=== PATIENT | female | born 1940 | race Caucasian/White ===

== ENCOUNTER 2019-11-17 05:49 | Emergency (ER) | payer OTHER ==
[~2019-11-17] VITALS: Ht 152.4 cm; Wt 79.4 kg
--- NOTE | 2019-11-17 05:55 | NUR ---
Dr. Castillo at bedside for MSE.
[2019-11-17] MEDS ORDERED: CLOP75TA33 PO (06:08)
[2019-11-17] MEDS ORDERED: CHOL200026 PO (06:08)
[2019-11-17] MEDS ORDERED: POTASSIUM 550 MG (06:08)
[2019-11-17] MEDS ORDERED: ATOR40TA29 PO (06:08)
[2019-11-17] MEDS ORDERED: DONE10TA44 PO (06:08)
[2019-11-17] MEDS ORDERED: levETIRAcetam IV 1,000 MG in IV DEXTROSE 5% 100 ML IV ONE (06:15)
[2019-11-17] MEDS ORDERED: levETIRAcetam 500 MG/5 ML VIAL IV ONE (06:20)
--- NOTE | 2019-11-17 06:20 | NUR ---
Pt out of ER for CT.
--- NOTE | 2019-11-17 06:32 | NUR ---
Pt back to ER from CT.
--- NOTE | 2019-11-17 07:11 | NUR ---
Report given to Justin Mckeon RN [facility].
[2019-11-17 07:14] LABS: BASOPHILS % (AUTO) 0.3 % (0.0-2.0); EOSINOPHILS % (AUTO) 0.3 % (0.0-7.0); HEMATOCRIT 41.9 % (31.2-41.9); HEMOGLOBIN 13.9 g/dL (10.9-14.3); LYMPHOCYTES # (AUTO) 0.8 K/uL (20.0-40.0); LYMPHOCYTES % (AUTO) 17.4 % (20.5-51.5); MEAN CORPUSCULAR HEMOGLOBIN 31.5 uug (24.7-32.8); MEAN CORPUSCULAR HGB CONC 33 g/dL (32.3-35.6); MEAN CORPUSCULAR VOLUME 94.8 fL (75.5-95.3); MONOCYTES # (AUTO) 0.9 K/uL (2.0-10.0); MONOCYTES % (AUTO) 18.6 % (0.0-11.0); NEUTROPHILS % (AUTO) 63.4 % (38.5-71.5); PLATELET COUNT (AUTO) 148 K/uL (179-408); RED BLOOD CELL COUNT(AUTO) 4.42 MIL/uL (3.63-4.92); WHITE BLOOD COUNT (AUTO) 4.7 K/uL (3.8-11.8)
[2019-11-17 07:27] LABS: ETHANOL < 3 MG/DL (0-0)
[2019-11-17 07:38] LABS: CARBON DIOXIDE 25 mmol/L (21-32); CHLORIDE 102 mmol/L (98-107); CREATININE 1.2 mg/dL (0.6-1.3); GLUCOSE 171 mg/dL (74-106); UREA NITROGEN, BLOOD 11 mg/dL (7-18)
[2019-11-17 07:44] LABS: ALANINE AMINOTRANSFERASE 18 U/L (14-59); ALKALINE PHOSPHATASE 48 U/L (50-136); ASPARTATE AMINOTRANSFERASE 27 U/L (15-37); BILIRUBIN,DIRECT 0.1 mg/dL (0.0-0.2); BILIRUBIN,TOTAL 0.7 mg/dL (0.2-1.0); TOTAL PROTEIN, SERUM 7.8 g/dL (6.4-8.2)
[2019-11-17] MEDS ORDERED: POTASSIUM CHLORIDE 10 MEQ TAB.PRT.SR ONE (07:59)
[2019-11-17] MEDS ORDERED: POTASSIUM CHLORIDE 10 MEQ TAB.PRT.SR PO ONE (08:00)
--- NOTE | 2019-11-17 08:20 | NUR ---
Pt got her legs tangled in side rail on bed, urinated on herself. Cleaned pt and changed her. Called pt's to pick her up. He indicated that he was stressed out about caring for her at home alone. Spoke with and will try to refer to DAVE for assistance. L/M for DAVE at 1441.
--- NOTE | 2019-11-17 09:05 | NUR ---
Pt had accidentally removed IV herself, catheter intact, site okay w/o bleeding. spoke with pt's , offered to transfer pt to [place], but wanted to take pt home. stated he has 2 SW at [place]. We urged to follow-up w/SWers and PCP to discuss options for pt care future. Gave pt's d/c instructions, verbalized understanding.
[2019-11-17 09:18] LABS: LYMPHOCYTES % (MANUAL) 20 % (20-40); MONOCYTES % (MANUAL) 17 % (2-10); NEUTROPHILS % (MANUAL) 63 % (42-75)
[2019-11-17 09:27] VITALS: BP 159/100
--- NOTE | 2019-11-17 10:24 | NUR ---
DAVE had received a voicemail message this morning from ED RN Justin regarding a social media assistant consultation for this patient. DAVE called ED at 9:13am this morning and spoke with Justin regarding the consultation. Justin stated that this SW can disregard the SS consultation request because patient's had just informed Justin and ED physician that patient has 2 social workers assigned to her from [place], and those social workers had provided patient's and the patient with several community resources which the stated they had not follow-up on yet. Justin stated that patient's had stated that he would like to take the patient home and will follow-up on the community resources that the [facility]'s had provided them with. No further SS consultation needed at this time.
== END 2019-11-17 09:10 | disposition home or self-care (01) ==
LOC: ER 05:49
DX: G40.909 Epilepsy, unspecified, not intractable, without status epilepticus (principal); Z91.14 Patient's other noncompliance with medication regimen; F03.90 Unspecified dementia, unspecified severity, without behavioral disturbance, psychotic disturbance, mood disturbance, and anxiety; Z86.73 Personal history of transient ischemic attack (TIA), and cerebral infarction without residual deficits; R94.31 Abnormal electrocardiogram [ECG] [EKG]; Z79.02 Long term (current) use of antithrombotics/antiplatelets; Z79.899 Other long term (current) drug therapy
CPT/HCPCS: 36415; 70450; 72125; 80048; 80076; 80307; 82962; 85025; 93005; 96374; 99285; J1953; J7060; 70030-TC; A4663; G0480

== ENCOUNTER 2020-01-10 23:50 | Emergency (ER) | payer OTHER ==
[~2020-01-10] VITALS: Ht 170.2 cm; Wt 69.4 kg
[~2020-01-10 23:50] MED LIST: ATOR40TA29 PO; CHOL200026 PO; CLOP75TA33 PO; DONE10TA44 PO; POTASSIUM 550 MG
[2020-01-11] MEDS ORDERED: [UNRECOGNIZED DRUG - REMARK] (00:04)
--- NOTE | 2020-01-11 00:05 | NUR ---
at bedside for MSE
[2020-01-11 00:34] LABS: BASOPHILS % (AUTO) 0.1 % (0.0-2.0); EOSINOPHILS % (AUTO) 0.5 % (0.0-7.0); HEMATOCRIT 35.7 % (31.2-41.9); LYMPHOCYTES # (AUTO) 1.6 K/uL (20.0-40.0); LYMPHOCYTES % (AUTO) 37.6 % (20.5-51.5); MEAN CORPUSCULAR HEMOGLOBIN 31.7 uug (24.7-32.8); MEAN CORPUSCULAR HGB CONC 34 g/dL (32.3-35.6); MEAN CORPUSCULAR VOLUME 94.4 fL (75.5-95.3); MONOCYTES # (AUTO) 0.8 K/uL (2.0-10.0); MONOCYTES % (AUTO) 19.5 % (0.0-11.0); NEUTROPHILS # (AUTO) 1.8 K/uL (1.8-8.9); NEUTROPHILS % (AUTO) 42.3 % (38.5-71.5); PLATELET COUNT (AUTO) 179 K/uL (179-408); RED BLOOD CELL COUNT(AUTO) 3.78 MIL/uL (3.63-4.92); WHITE BLOOD COUNT (AUTO) 4.2 K/uL (3.8-11.8)
[2020-01-11 00:36] LABS: CARBON DIOXIDE 30 mmol/L (21-32); CHLORIDE 101 mmol/L (98-107); CREATININE 1.1 mg/dL (0.6-1.3); GLUCOSE 105 mg/dL (74-106); POTASSIUM 3.4 mmol/L (3.5-5.1); UREA NITROGEN, BLOOD 19 mg/dL (7-18)
[2020-01-11 00:50] LABS: ALANINE AMINOTRANSFERASE 16 U/L (14-59); ALKALINE PHOSPHATASE 40 U/L (50-136); ASPARTATE AMINOTRANSFERASE 20 U/L (15-37); BILIRUBIN,DIRECT 0.1 mg/dL (0.0-0.2); BILIRUBIN,TOTAL 0.5 mg/dL (0.2-1.0); CREATINE KINASE, TOTAL 59 U/L (26-192); TOTAL PROTEIN, SERUM 6.9 g/dL (6.4-8.2)
[2020-01-11 00:51] LABS: ACETAMINOPHEN < 2.0 ug/mL (10-30)
[2020-01-11 01:01] LABS: THYROID STIMULATING HORMONE 3.811 mIU/mL (0.358-3.740)
[2020-01-11 01:23] LABS: ETHANOL < 3 MG/DL (0-0)
--- NOTE | 2020-01-11 01:25 | NUR ---
Patient noted resting in bed at this time, no signs of distress noted
--- NOTE | 2020-01-11 02:55 | NUR ---
RAOUL Newell informed of patients awaiting transfer to [facility]
--- NOTE | 2020-01-11 03:23 | NUR ---
Patient noted trying to ambulate without assistance, patient redirected back to bed multiple times, will continue to monitor
--- NOTE | 2020-01-11 03:27 | NUR ---
community health nurse supervisor informed that patient needs a sitter temporarily, mix house operator states she will send a security messenger if available
--- NOTE | 2020-01-11 03:46 | NUR ---
Patient Tranfers to outside Facility Physician:MD Mackey Location: [facility] Emergency room
[2020-01-11 10:25] LABS: EOSINOPHILS % (MANUAL) 2 % (0-8); LYMPHOCYTES % (MANUAL) 38 % (20-40); MONOCYTES % (MANUAL) 19 % (2-10); NEUTROPHILS % (MANUAL) 41 % (42-75)
== END 2020-01-11 03:49 | disposition short-term general hospital (02) ==
LOC: ER 23:51
DX: R45.1 Restlessness and agitation (principal); Z86.73 Personal history of transient ischemic attack (TIA), and cerebral infarction without residual deficits; E78.5 Hyperlipidemia, unspecified; Z79.02 Long term (current) use of antithrombotics/antiplatelets
CPT/HCPCS: 36415; 80048; 80076; 80307; 80329; 82550; 84443; 85007; 85025; 99285; G0480; 70030-TC; A4663

== ENCOUNTER 2020-02-07 04:35 | Emergency (ER) | payer OTHER ==
[~2020-02-07] VITALS: Ht 165.1 cm; Wt 68.0 kg
[~2020-02-07 04:35] MED LIST changes: -POTASSIUM 550 MG; +[UNRECOGNIZED DRUG - REMARK]
--- NOTE | 2020-02-07 04:40 | NUR ---
Dr. Hassan at bedside for MSE.
[2020-02-07] MEDS ORDERED: IV NORMAL SALINE 500 ML BAG IV ONE (04:45)
[2020-02-07] MEDS ORDERED: levETIRAcetam IV 500 MG in IV DEXTROSE 5% 100 ML IV ONE (04:45)
--- NOTE | 2020-02-07 04:50 | NUR ---
[facility] contacted about patient history and list of medications. Faxed received and forwarded to Dr. Hassan.
[2020-02-07] MEDS ORDERED: levETIRAcetam 500 MG/5 ML VIAL IV ONE (05:01)
[2020-02-07 05:03] LABS: BASOPHILS % (AUTO) 0.5 % (0.0-2.0); EOSINOPHILS % (AUTO) 0.6 % (0.0-7.0); HEMATOCRIT 39.2 % (31.2-41.9); HEMOGLOBIN 13.1 g/dL (10.9-14.3); LYMPHOCYTES # (AUTO) 1.6 K/uL (20.0-40.0); LYMPHOCYTES % (AUTO) 38.9 % (20.5-51.5); MEAN CORPUSCULAR HEMOGLOBIN 32.2 uug (24.7-32.8); MEAN CORPUSCULAR HGB CONC 34 g/dL (32.3-35.6); MEAN CORPUSCULAR VOLUME 95.9 fL (75.5-95.3); MONOCYTES # (AUTO) 0.7 K/uL (2.0-10.0); MONOCYTES % (AUTO) 18.1 % (0.0-11.0); NEUTROPHILS # (AUTO) 1.7 K/uL (1.8-8.9); NEUTROPHILS % (AUTO) 41.9 % (38.5-71.5); PLATELET COUNT (AUTO) 159 K/uL (179-408); RED BLOOD CELL COUNT(AUTO) 4.09 MIL/uL (3.63-4.92); WHITE BLOOD COUNT (AUTO) 4.1 K/uL (3.8-11.8)
[2020-02-07 05:13] LABS: CARBON DIOXIDE 26 mmol/L (21-32); CHLORIDE 105 mmol/L (98-107); CREATININE 1.3 mg/dL (0.6-1.3); GLUCOSE 108 mg/dL (74-106); POTASSIUM 3.1 mmol/L (3.5-5.1); UREA NITROGEN, BLOOD 13 mg/dL (7-18)
--- NOTE | 2020-02-07 05:14 | NUR ---
Pt down for CT scan. Left in stable condition via stretcher, assisted by radiology services manager.
[2020-02-07] MEDS ORDERED: CLON1PAT14 TD (05:17)
[2020-02-07] MEDS ORDERED: QUET25TA PO (05:17)
[2020-02-07] MEDS ORDERED: DIVA125T2 PO (05:17)
[2020-02-07 05:20] LABS: ALANINE AMINOTRANSFERASE 13 U/L (14-59); ALKALINE PHOSPHATASE 36 U/L (50-136); ASPARTATE AMINOTRANSFERASE 14 U/L (15-37); BILIRUBIN,DIRECT 0.1 mg/dL (0.0-0.2); BILIRUBIN,TOTAL 0.6 mg/dL (0.2-1.0); TOTAL PROTEIN, SERUM 7.1 g/dL (6.4-8.2); VALPROIC ACID 16 ug/mL (50-100)
[2020-02-07 05:36] LABS: ETHANOL < 3 MG/DL (0-0)
--- NOTE | 2020-02-07 05:40 | NUR ---
Back from CT.
[2020-02-07] MEDS ORDERED: POTASSIUM CHLORIDE 20 MEQ TAB.PRT.SR ONE (05:45)
[2020-02-07] MEDS ORDERED: POTASSIUM CHLORIDE 20 MEQ TAB.PRT.SR PO ONE (05:45)
[2020-02-07] MEDS ORDERED: DIVALPROEX 500 MG TABLET.DR PO ONE ×2 (05:45)
--- NOTE | 2020-02-07 05:47 | NUR ---
Followed up with SAYRA regarding CT results.
--- NOTE | 2020-02-07 05:49 | NUR ---
Dr. Hassan is on the line with (Reece) to give update.
--- NOTE | 2020-02-07 05:56 | NUR ---
S/w Dontrell from [facility]. Dr Khan will call back.
--- NOTE | 2020-02-07 06:06 | NUR ---
Dr. Hassan on the line with Dr. Khan from [facility].
--- NOTE | 2020-02-07 06:14 | NUR ---
Dr. Khan accepted patient for evaluation for [facility] disability rt non compliance with medications and worsening dementia. Will wait for [facility] to call back for accepting facility and admission information.
--- NOTE | 2020-02-07 06:35 | NUR ---
Glenis from [facility] said that the patient will be going to [facility] ER. [phone] to call for report. Report given to Tolu Barboza ER nurse. Informed him that [facility] ambulance, arranged by [facility], will be picking up patient from [facility] at 0730.
[2020-02-07] MEDS ORDERED: LORAZEPAM 0.5 MG TABLET PO ONE (06:45)
[2020-02-07] MEDS ORDERED: LORAZEPAM 2 MG/1 ML VIAL ONE (06:46)
--- NOTE | 2020-02-07 06:54 | NUR ---
Pt started trying to get out of bed, getting really anxious and agitated. Dr. Pimentel notified and Ativan 2mg IV administered.
[2020-02-07] MEDS ORDERED: LORAZEPAM 2 MG/1 ML VIAL IV ONE (07:00)
--- NOTE | 2020-02-07 07:44 | NUR ---
Patient taken by [facility] ambulance unit [id number] via gurney. All belongings taken with patient. NAD noted
[2020-02-07 07:48] LABS: EOSINOPHILS % (MANUAL) 2 % (0-8); LYMPHOCYTES % (MANUAL) 42 % (20-40); MONOCYTES % (MANUAL) 20 % (2-10); NEUTROPHILS % (MANUAL) 36 % (42-75)
== END 2020-02-07 08:00 | disposition short-term general hospital (02) ==
LOC: ER 04:37
DX: G40.909 Epilepsy, unspecified, not intractable, without status epilepticus (principal); R40.2412 Glasgow coma scale score 13-15, at arrival to emergency department; E78.5 Hyperlipidemia, unspecified; Z91.14 Patient's other noncompliance with medication regimen; Z79.02 Long term (current) use of antithrombotics/antiplatelets; G30.9 Alzheimer's disease, unspecified; F02.81 Dementia in other diseases classified elsewhere, unspecified severity, with behavioral disturbance; Z88.0 Allergy status to penicillin; I69.334 Monoplegia of upper limb following cerebral infarction affecting left non-dominant side; I10 Essential (primary) hypertension; E04.2 Nontoxic multinodular goiter; E06.3 Autoimmune thyroiditis
CPT/HCPCS: 36415; 70450; 80048; 80076; 80164; 80307; 85025; 96374; 96375; 99285; J1953; J2060; J7060; 70030-TC; A4663; G0480; J7030